=== PATIENT | male | born 1970 | race Caucasian/White ===

== ENCOUNTER 2023-04-15 10:43 | Day surgery (SDC) | payer BC, SELFPAY ==
[2023-04-15 11:06] VITALS: BP 136/79; PULSE 78; RESP 16; TEMP 36.1; O2SAT 100
[2023-04-15] MEDS: Lactated Ringers 1,000 ML 15 ML IV (11:08)
--- NOTE | 2023-04-15 11:23 | PCM.HP.STD ---
[facility] - General General Date of Admission: 04/15/23 Date of Service: 04/15/23 Chief Complaint: Surveillance colonoscopy HPI Narrative ROSAURA WYATT, is a 53 M who presents today for surveillance colonoscopy. He had a colonoscopy approximately 5 years of the regimen during that time. He does not have any abdominal pain. He is having cramping. He does not have any chest pain or shortness of breath. Overall is in very good health. [facility] Medical History (Updated 04/09/23 @ 14:12 by Mariella Farmer) Arthritis CPAP (continuous positive airway pressure) dependence Diabetes Dyslipidemia Fatty liver Former smoker Gastric reflux Gastritis High cholesterol HTN (hypertension) Hx of neck injury Sleep apnea Home Medications amlodipine 5 mg-valsartan 160 mg tablet 1 tab PO DAILY 01/24/23 [History Last Taken Unknown] metformin 500 mg tablet 1,000 mg PO DAILY 01/24/23 [History Last Taken Unknown] simvastatin 40 mg tablet 40 mg PO DAILY 01/24/23 [History Last Taken Unknown] Allergy/AdvReac Type Severity Reaction Status Date / Time No Known Allergies Allergy Verified 04/15/23 11:06 Family History (Updated 01/24/23 @ 11:07 by Eileen Sims) Uncle Colon cancer Surgical History (Updated 04/09/23 @ 14:27 by Mariella Farmer) History of arthroscopy of knee History of cervical spinal surgery History of colonoscopy History of nasal surgery History of vasectomy Social History (Updated 01/24/23 @ 11:08 by Eileen Sims) household members: spouse current occupational status: retired Smoking Status: Former smoker ROS Review of Systems ROS Unobtainable: other Constitutional Constitutional: Denies fatigue, fever(s), poor appetite, weight gain or weight loss ENT HEENT: Denies mouth lesions Cardiovascular Cardiovascular: Denies abdominal bloating, abdominal edema or abdominal pain Respiratory/Chest Respiratory/Chest: Denies change in mental status, change in phlegm color, chest congestion or chest tightness Gastrointestinal Gastrointestinal: Denies belching, bloating, change in bowel habits, change in stool character, chewing difficulty, coffee ground emesis, constipation, cramping, diarrhea, dyspepsia, dysphagia, early satiety, excessive flatus, fecal incontinence, heartburn, hematemesis, hematochezia, hemorrhoids, loose stools, melena, nausea, odynophagia, rectal bleeding, tenesmus, vomiting or weight changes Genitourinary Genitourinary: Denies abdominal discomfort, burning urination or itching Musculoskeletal Musculoskeletal: Reports as per HPI; Denies muscle weakness or myalgias Integumentary Integumentary: Denies jaundice Neurologic Neurologic: Denies lack of coordination or weakness Psychiatric Psychiatric: Denies confusion, depression, memory loss, mood swings, paranoia or suicidal ideation Endocrine Endocrinology: Denies systems reviewed and no addt'l complaints, except as documented Hematologic/Lymphatic Hematologic/Lymphatic: Denies anemia, easy bleeding, easy bruising or lymphadenopathy Allergic/Immunologic Allergic/Immunologic: Denies systems reviewed and no addt'l complaints, except as documented Vital Signs Vital Signs Vital Signs: 04/15/23 11:06 04/15/23 11:06 Temperature 97 F L Temperature Source Temporal Pulse Rate 78 Respiratory Rate 16 Respiratory Pattern Normal Blood Pressure 136/79 H Blood Pressure Mean 98 Blood Pressure Source Monitor Blood Pressure Position Semi-Fowlers Blood Pressure Location Left Arm Pulse Ox 100 Oxygen Delivery Method Room Air Weight Weight: 221 lb 7.269 oz Body Mass Index (BMI) 30.0 Physical Exam Const alert General Appearance: cooperative Orientation / Consciousness: oriented to person HEENT hearing grossly normal bilaterally Head and Scalp: normal to inspection Face and Sinus: face symmetric Nose: external nose normal Mouth: oral and palatal mucosa normal Eyes conjunctivae normal General Eye: normal appearance of both eyes Neck full ROM General: normal visual inspection Lymph Lymphatic: no lymphadenopathy noted Chest inspection of chest normal and palpation of chest normal Chest: symmetrical chest wall rise Resp normal respiratory effort Effort and Inspection: able to speak in complete sentences Cardio regular rate GI non-distended Percussion: normal to percussion Rectal Exam: deferred Neuro Speech: speech normal Gait (Neuro): normal gait Assessment & Plan Assessment/Plan (1) Encounter for screening for malignant neoplasm of colon: PLAN: He was explained alternatives, risk, benefits including, sepsis, perforation, and .. He will have an ASA of 2.
[2023-04-15 11:52] LABS: Bedside Glucose 235 mg/dL (74-106)
--- NOTE | 2023-04-15 12:00 | COLBX_PTH ---
PATIENT: ROSAURA WYATT LOC: EN U#:[id number] AGE/SX: 53/M ROOM: RE04/15/[address]: Dr. Rob No DO : 1970 BED: DIS: 04/15/2023 SPEC #: [id number] RECD: 04/15/23 14:15 STATUS: THONY REVamsi #: [id number] KOLE: 04/15/23 12:[address]: Rob No DEPT: SURGICAL PATHOLOGY RECD BY: Anamaria Mejia ENTERED: 04/16/23 09:24 SP TYPE: COLON BX OTHR DR: MEIR Xiong Tissues: A - COLON BIOPSY B - Cecum, NOS C - Ileum, NOS Procedures: Surgery Specimen Level IV HEADER OPERATION: Colonoscopy PRE-OP DIAGNOSIS: Encounter for screening for malignant neoplasm of colon TISSUE SUBMITTED: A. Hepatic flexure of polyp, B. Cecum, C. Terminal ileum MICROSCOPIC DIAGNOSIS A. Hepatic flexure of polyp, biopsy: A fragment of colonic mucosa, no pathologic diagnosis. B. Cecum, biopsy: Moderate to marked chronic active colitis. See microscopic description and comment. C. Terminal ileum, biopsy: A fragment of small intestine mucosa, no pathologic diagnosis. SJ: 04/17/2023 COMMENT Correlation with clinical, endoscopic findings and appropriate follow up are necessary. MICROSCOPIC DESCRIPTION Slides are reviewed. B. The specimen shows fragments of colonic mucosa with acute and chronic inflammatory cell infiltrates in the lamina propria, glandular distortion, cryptitis and crypt abscesses. Granulomas are not seen. No evidence of dysplasia. GROSS DESCRIPTION A. Received is one container labeled with the patient name and designated hepatic flexure polyp. The specimen consists of one fragment of light huang soft tissue that measures 0.3 x 0.3 x 0.1 cm. The specimen is totally submitted in one cassette. B. Received is one container labeled with the patient name and designated cecum. The specimen consists of multiple irregular fragment of light huang soft tissue that measures 1.0 x 0.5 x 0.1 cm. The specimen is totally submitted in one cassette. C. Received is one container labeled with the patient name and designated terminal ileum. The specimen consists of one irregular fragment of light huang soft tissue that measures 0.5 x 0.5 x 0.1 cm. The specimen is totally submitted in one cassette. /AM:roxy 04/16/23 TC:2 CPT:93421 x3
--- NOTE | 2023-04-15 12:25 | OP.CCLET_ITS ---
04/15/2023 Madhav Xiong Re : Colonoscopy procedure for Ariel Mccall Dear Marcos This procedure was performed on Saturday, April 15, 2023. My impressions and recommendations are as follows: Impressions : - Diverticulosis in the recto-sigmoid colon and in the sigmoid colon. - One 4 mm polyp at the hepatic flexure, removed with a cold snare. Resected and retrieved. - Localized moderate inflammation was found in the cecum secondary to colitis. Biopsied. Recommendations : - Discharge patient to home. - Resume previous diet. - Continue present medications. - Await pathology results. - Repeat colonoscopy in 5 years for surveillance. My findings are described in the full procedure note, which is enclosed. If I can be of further assistance, please feel free to contact me at . Sincerely, Rob No, 04/15/2023 12:25:34 PM This report has been signed electronically.
--- NOTE | 2023-04-15 12:25 | OP.COLON_ITS ---
Patient Name: Ariel Mccall Procedure Date: 04/15/2023 12:00 PM Date of : 1970 Age: 53 Procedure: Colonoscopy Indications: High risk colon cancer surveillance: Personal history of colonic polyps Providers: Rob No DO Medicines: Monitored Anesthesia Care Patient Profile: This is a 53 year old male. Refer to note in patient chart for documentation of history and physical. Last Colonoscopy: 5 years ago. Complications: No immediate complications. Procedure: Pre-Anesthesia Assessment: - Prior to the procedure, a History and Physical was performed, and patient medications and allergies were reviewed. The patient is competent. The risks and benefits of the procedure and the sedation options and risks were discussed with the patient. All questions were answered and informed consent was obtained. Patient identification and proposed procedure were verified by the physician. Mental Status Examination: normal. Prophylactic Antibiotics: The patient does not require prophylactic antibiotics. Prior Anticoagulants: The patient has taken no anticoagulant or antiplatelet agents. After reviewing the risks and benefits, the patient was deemed in satisfactory condition to undergo the procedure. The anesthesia plan was to use monitored anesthesia care (MAC). Immediately prior to administration of medications, the patient was re-assessed for adequacy to receive sedatives. The heart rate, respiratory rate, oxygen saturations, blood pressure, adequacy of pulmonary ventilation, and response to care were monitored throughout the procedure. The physical status of the patient was re-assessed after the procedure. After I obtained informed consent, the scope was passed under direct vision. Throughout the procedure, the patient's blood pressure, pulse, and oxygen saturations were monitored continuously. The pediatric colonoscope was introduced through the anus and advanced to the terminal ileum. The colonoscopy was performed without difficulty. The patient tolerated the procedure well. The quality of the bowel preparation was good. Scope In: 12:09:33 PM Scope Withdrawal Time 0 hours 6 minutes 26 seconds Scope Out: 12:19:03 PM Total Procedure Duration Time 0 hours 9 minutes 30 seconds Findings: The perianal and digital rectal examinations were normal. Multiple small and large-mouthed diverticula were found in the recto-sigmoid colon and sigmoid colon. A 4 mm polyp was found in the hepatic flexure. The polyp was sessile. The polyp was removed with a cold snare. Resection and retrieval were complete. Verification of patient identification for the specimen was done. Estimated blood loss was minimal. Localized moderate inflammation characterized by congestion (edema), erosions, erythema and friability was found in the cecum. Biopsies were taken with a cold forceps for histology. Biopsies were taken with a cold forceps for histology. Verification of patient identification for the specimen was done. Estimated blood loss was minimal. Impression: - Diverticulosis in the recto-sigmoid colon and in the sigmoid colon. - One 4 mm polyp at the hepatic flexure, removed with a cold snare. Resected and retrieved. - Localized moderate inflammation was found in the cecum secondary to colitis. Biopsied. Recommendation: - Discharge patient to home. - Resume previous diet. - Continue present medications. - Await pathology results. - Repeat colonoscopy in 5 years for surveillance. Procedure Code(s): --- Professional --- 36868, Colonoscopy, flexible; with removal of tumor(s), polyp(s), or other lesion(s) by snare technique 22736, 59, Colonoscopy, flexible; with biopsy, single or multiple CPT copyright 2021 [employer]. All rights reserved. The codes documented in this report are preliminary and upon certified medical records coder review may be revised to meet current compliance requirements. Rob No DO 04/15/2023 12:25:34 PM This report has been signed electronically. Number of Addenda: 0 Note Initiated On: 04/15/2023 12:00 PM
[2023-04-15 12:26] VITALS: BP 109/64; BP 136/79; PULSE 85; RESP 16; TEMP 36.4; O2SAT 98
[2023-04-15 12:30] VITALS: BP 113/82; BP 136/79; PULSE 79; RESP 18; O2SAT 98
[2023-04-15 12:35] VITALS: BP 136/79; BP 166/69; PULSE 70; RESP 16; O2SAT 97
[2023-04-15 12:40] VITALS: BP 117/48; BP 136/79; PULSE 68; RESP 16; TEMP 37.1; O2SAT 99
[2023-04-15 13:04] VITALS: BP 136/79
== END 2023-04-15 13:12 | disposition home or self-care (01) ==
LOC: EN 10:46 → AC 10:47
PROVIDERS: PCP Physician Assistant; Referring Provider Physician Assistant; Visit Provider Internal Medicine Gastroenterology
PROC: 0DJD8ZZ Inspection of Lower Intestinal Tract, Via Natural or Artificial Opening Endoscopic (ICD-10-PCS; CPT 45378; principal; 2023-04-15 11:55)
DX: Z12.11 Encounter for screening for malignant neoplasm of colon (principal); E11.9 Type 2 diabetes mellitus without complications; K52.9 Noninfective gastroenteritis and colitis, unspecified; E78.00 Pure hypercholesterolemia, unspecified; I10 Essential (primary) hypertension; K63.5 Polyp of colon; K57.30 Diverticulosis of large intestine without perforation or abscess without bleeding; G47.30 Sleep apnea, unspecified; K76.0 Fatty (change of) liver, not elsewhere classified; Z79.84 Long term (current) use of oral hypoglycemic drugs; Z79.899 Other long term (current) drug therapy; Z87.891 Personal history of nicotine dependence; Z80.0 Family history of malignant neoplasm of digestive organs; Z86.010 Personal history of colon polyps
CPT/HCPCS: 45380; 45385; 82962; 88305; J7120